=== PATIENT | male | born 1950 | race Caucasian/White ===

== ENCOUNTER 2019-04-28 14:04 | Outpatient (CLI) | payer MEDICARE ==
--- NOTE | 2019-04-28 14:24 | RAD ---
2 view chest: [04/28/2019] Comparison:12/01/2018 HISTORY: Ventricular tachycardia FINDINGS: Midline sternotomy wires and a multilead transvenous AICD stable when compared to prior yosi ging. No pneumothorax or pleural fluid. No focal consolidation or alveolar edema. Multilevel anterior osteophyte formation throughout the thoracic spine. IMPRESSION: Chronic findings as detailed above. No focal consolidation or alveolar edema.
[2019-04-28 14:44] LABS: ALT (SGPT) 38 U/L (8-55); AST (SGOT) 27 U/L (5-34); Albumin 4.6 g/dL (3.4-4.8); Alkaline Phosphatase 42 U/L (40-110); Anion Gap 16 mmol/L (10-20); BUN (Urea Nitrogen) 11 mg/dL (8.4-25.7); Bilirubin, Total 0.3 mg/dL (0.2-1.2); Calc. Creatinine Clearance 0 mL/min (70-130); Calcium 8.8 mg/dL (7.8-10.44); Carbon Dioxide 26 mmol/L (23-31); Chloride 104 mmol/L (98-107); Estimated GFR-MDRD 79; Glucose 122 mg/dL (80-115); Potassium 4.4 mmol/L (3.5-5.1); Protein, Total 7.6 g/dL (5.8-8.1); Sodium 142 mmol/L (136-145)
== END 2019-04-28 14:05 | disposition home or self-care (01) ==
LOC: MADLAB 14:04
PROVIDERS: ATTEND Internal Medicine Cardiovascular Disease
DX: I47.2 Ventricular tachycardia (principal); E78.00 Pure hypercholesterolemia, unspecified; M25.78 Osteophyte, vertebrae; Z95.810 Presence of automatic (implantable) cardiac defibrillator
CPT/HCPCS: 36415; 71046; 80053

== ENCOUNTER 2021-12-14 12:58 | Outpatient (CLI) | payer MEDICARE ==
[2021-12-14 13:38] LABS: ALT (SGPT) 43 U/L (8-55); AST (SGOT) 34 U/L (5-34); Albumin 4.3 g/dL (3.4-4.8); Alkaline Phosphatase 38 U/L (40-110); Anion Gap 13 mmol/L (10-20); BUN (Urea Nitrogen) 9 mg/dL (8.4-25.7); Bilirubin, Total 0.5 mg/dL (0.2-1.2); Calc. Creatinine Clearance 0 mL/min (70-130); Calcium 9.5 mg/dL (7.8-10.44); Carbon Dioxide 29 mmol/L (23-31); Cardiac Risk 1.9 (Less than 4.5); Chloride 102 mmol/L (98-107); Cholesterol 107 mg/dl (< 200 Desired); Estimated GFR 91; Globulin 2.9 g/dL (2.4-3.5); Glucose 155 mg/dL (83-110); HDL Cholesterol 55 mg/dL (>60 Neg Risk); LDL Cholesterol, Calculated 39 mg/dL; Potassium 4.8 mmol/L (3.5-5.1); Protein, Total 7.2 g/dL (5.8-8.1); Sodium 139 mmol/L (136-145); Triglycerides 67 mg/dL (Less than 150)
== END 2021-12-14 12:59 | disposition home or self-care (01) ==
LOC: MADLAB 12:58
PROVIDERS: ATTEND Internal Medicine Cardiovascular Disease
DX: E78.00 Pure hypercholesterolemia, unspecified (principal)
CPT/HCPCS: 36415; 80053; 80061